=== PATIENT | male | born 1985 | race Caucasian/White ===

== ENCOUNTER 2020-04-24 09:36 | Emergency (ER) | payer MEDICAID ==
[~2020-04-24] VITALS: Ht 162.6 cm; Wt 64.0 kg
[2020-04-24 09:54] VITALS: BP 147/102
== END 2020-04-24 10:41 | disposition home or self-care (01) ==
LOC: ER 09:36
DX: K04.7 Periapical abscess without sinus (principal)

== ENCOUNTER 2021-11-26 11:24 | Emergency (ER) | payer MEDICAID ==
[~2021-11-26] VITALS: Ht 170.2 cm; Wt 64.4 kg
[2021-11-26 11:56] VITALS: BP 138/93
[2021-11-26] MEDS ORDERED: ACET-1080 PO ×2 (12:16→12:24)
[2021-11-26] MEDS ORDERED: CEPH500T PO ×2 (12:16→12:24)
== END 2021-11-26 12:31 | disposition home or self-care (01) ==
LOC: ER 11:24
DX: M67.48 Ganglion, other site (principal); F17.210 Nicotine dependence, cigarettes, uncomplicated; Z79.899 Other long term (current) drug therapy; Z88.8 Allergy status to other drugs, medicaments and biological substances

== ENCOUNTER 2021-12-02 18:03 | Emergency (ER) | payer MEDICAID ==
[~2021-12-02] VITALS: Ht 167.6 cm; Wt 68.1 kg
[~2021-12-02 18:03] MED LIST: ACET-1080 PO; CEPH500T PO
[2021-12-02] MEDS ORDERED: CLINDAMYCIN 900MG IV 50 ML IV ONE (21:45)
[2021-12-02 22:25] LABS: Basophils # (auto) 0 10 ^3/uL (0-0.2); Basophils % (auto) 0.4 % (0.0-2.0); Eosinophils # (auto) 0.2 10 ^3/uL (0-0.8); Eosinophils % (auto) 1.6 % (0.0-7.0); Hematocrit 50.6 % (41.0-53.0); Hemoglobin 17.5 g/dL (13.5-17.5); Lymphocytes # (auto) 2.1 10 ^3/uL (0.4-5.4); Lymphocytes % (auto) 19.5 % (10.0-50.0); Mean Corpuscular Hgb Conc. 34.5 g/dL (32.0-36.0); Mean Corpuscular Volume 86.9 fL (80.0-100.0); Monocytes # (auto) 0.7 10 ^3/uL (0-1.3); Monocytes % (auto) 6.7 % (0.0-12.0); Neutrophils # (auto) 7.9 10 ^3/uL (1.6-8.6); Neutrophils % (auto) 71.8 % (37.0-80.0); Nucleated Red Blood Cells % 0.1 %; Red Blood Cells 5.83 10^6/uL (4.5-5.90); Red Cell Distribution Width 13.8 % (11.8-14.3)
[2021-12-02 22:43] LABS: Albumin 3.9 g/dL (3.4-5.0); Calcium 9.3 mg/dL (8.5-10.1); Potassium 3.9 mmol/L (3.5-5.1)
[2021-12-02 22:46] LABS: Bilirubin, Total 0.3 mg/dL (0.2-1.0); Total Protein 7.3 g/dL (6.4-8.2)
[2021-12-02] MEDS ORDERED: IOHEXOL 300 MG/ML 100ML BOTTLE IJ ONE (22:50)
[2021-12-03] MEDS ORDERED: MORPHINE SULFATE INJECTION 2 MG/ML SYRG IV ONE (02:00)
[2021-12-03 02:04] VITALS: BP 159/104
[2021-12-03] MEDS ORDERED: CLIN150C8 PO (02:08)
== END 2021-12-03 02:10 | disposition home or self-care (01) ==
LOC: ER 18:03
DX: L02.11 Cutaneous abscess of neck (principal); F17.210 Nicotine dependence, cigarettes, uncomplicated; Z79.899 Other long term (current) drug therapy; Z88.1 Allergy status to other antibiotic agents
CPT/HCPCS: 36415; 70491; 80053; 85025; 96365; 96375; 99285; J2270; J3490; Q9967; 93005

== ENCOUNTER 2021-12-05 06:55 | Emergency (ER) | payer MEDICAID ==
[~2021-12-05] VITALS: Ht 167.6 cm; Wt 68.0 kg
[~2021-12-05 06:55] MED LIST changes: +CLIN150C8 PO
[2021-12-05 08:13] VITALS: BP 132/95
== END 2021-12-05 09:03 | disposition home or self-care (01) ==
LOC: ER 06:55
DX: L02.11 Cutaneous abscess of neck (principal); F17.210 Nicotine dependence, cigarettes, uncomplicated; Z79.2 Long term (current) use of antibiotics; Z79.899 Other long term (current) drug therapy; Z88.8 Allergy status to other drugs, medicaments and biological substances

== ENCOUNTER 2021-12-07 17:22 | Emergency (ER) | payer MEDICAID ==
[~2021-12-07] VITALS: Ht 167.6 cm; Wt 66.5 kg
[2021-12-07 17:23] VITALS: BP 139/94
== END 2021-12-07 23:04 | disposition home or self-care (01) ==
LOC: ER 17:22
DX: L72.0 Epidermal cyst (principal); Z48.00 Encounter for change or removal of nonsurgical wound dressing